=== PATIENT | male | born 1940 | race Caucasian/White ===

== ENCOUNTER 2017-06-30 09:27 | Outpatient (CLI) | payer MEDICARE, OTHER ==
--- NOTE | 2017-07-03 11:41 | CONSULTATION REPORT ---
REFERRING PHYSICIAN: Benitez Godoy DO CONSULTING PHYSICIAN: Ron Buitrago MD HISTORY OF PRESENT ILLNESS: Jeramy Mcdaniel is a 76-year-old white male who was sent to me by Dr. Benitez Godoy for dysphagia. This is a 76-year-old white male who has had difficulty swallowing for the past year. He had a barium swallow which showed a nonfunctioning esophagus. He had an upper endoscopy which showed a stricture. This was dilated with no improvement. The symptoms occur with liquids and solids. There is a concern for possible underlying autoimmune disease, otherwise, he thinks his health is pretty good. He has had chronic shoulder pain for years. He has some pain in his fingers mainly right and left 4th digits. Color change in the hands and feet in the cold with slight blanching. There is no cyanosis and there is no redness. He has had no digital ulcers. He has some fatigue but no weakness or fevers. Some dry eyes. No loss of vision. No itchy eyes. No dry mouth. No hoarseness. No frequent sore throats. He has had no chest pain, shortness of breath, cough or wheezing, nausea, vomiting, or diarrhea. No dark stools or bloody stools. No skin rashes or photosensitivity. PAST MEDICAL HISTORY: 1. Cataracts. 2. Chronic headaches. 3. Rheumatic fever. 4. Cholecystectomy. 5. Alesha fundoplication. 6. Inguinal hernia. 7. New diagnosis of celiac disease. PRESENT MEDICATIONS: 1. Prevacid 15 mg daily. 2. Uroxatral 10 mg daily. 3. Lisinopril 2.5 mg daily. 4. Aspirin. 5. Mucinex. 6. Singulair 10 mg daily. ALLERGIES: He reports allergies to: 1. Penicillin. 2. Sulfa drugs. 3. Gluten. SOCIAL HISTORY: No smoking. No drinking. He is . He is retired. PHYSICAL EXAMINATION: GENERAL: He looks well. VITAL SIGNS: T: 96.1, R: 12, P: 60, BP: 138/77. HEENT: Sclerae are anicteric. Conjunctivae are pink. No stomatitis or glossitis. LUNGS: Clear bilaterally with no crackles or wheezing. HEART: Regular rhythm. ABDOMEN: Soft and nontender. VASCULAR: No edema or cyanosis. SKIN: Shows no facial telangiectasias. No sclerodactyly. No digital pulp infarcts. No periungual lesions. ORAL EXAM: No oral telangiectasias. 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 Right shoulder has limited abduction with hard bony swelling and acromioclavicular hypertrophy. Hips, knees, ankles, and feet are grossly unremarkable. IMPRESSION AND PLAN: 1. Concern for possible scleroderma. I am sending his labs off for [facility] testing. I will call him when I get the results; otherwise, he has no other findings or stigmata of CREST or systemic sclerosis at this time. 2. He does have Dupuytren's findings in both hands which are pauci- symptomatic. cc: Dr. Benitez COTO
== END 2017-06-30 09:30 ==
LOC: RHEU 09:27
PROVIDERS: ATTEND Internal Medicine
DX: M72.0 Palmar fascial fibromatosis [Dupuytren] (principal); R13.19 Other dysphagia
CPT/HCPCS: 99214; G0463

== ENCOUNTER 2017-07-20 14:54 | Outpatient (CLI) | payer MEDICARE, OTHER | END 2017-07-20 14:55 | LOC: LAB 14:54 | PROVIDERS: ATTEND Internal Medicine | DX: Z53.9 Procedure and treatment not carried out, unspecified reason (principal) | CPT/HCPCS: 36415 ==

== ENCOUNTER 2017-08-04 11:24 | Outpatient (CLI) | payer MEDICARE, OTHER ==
--- NOTE | 2017-08-07 07:43 | OP Clinic Progress Note ---
Dear Dr. Godoy: REASON FOR VISIT: I had the pleasure of seeing Jeramy Mcdaniel in follow up. He is doing well. He is eating small meals and tolerating his esophageal dysfunction. Otherwise, no new medical problems and specifically no color change in his hands and feet in the cold. No joint pain or stiffness. No chest pain, shortness of breath, cough or wheezing. No change in past medical history, medications, allergies, or social history. PHYSICAL EXAMINATION: GENERAL: He looks well. VITAL SIGNS: Height: 6 feet 1 inch. Weight: 173. T: 97.5, R: 20, heart rate 60, BP: 120/60. HEENT: Grossly unremarkable. LUNGS: Clear with no crackles or wheezing. HEART: Regular rhythm. ABDOMEN: Soft. SKIN: No telangiectasias. No sclerodactyly. LABORATORY: His [facility] testing returned. Testing for anti-Scl-70 antibodies was negative. Testing for anti-CENP was negative. He had a low- positive rheumatoid factor of 5.1. IMPRESSION: 1. No evidence of systemic sclerosis. 2. His elevated rheumatoid factor is of unknown significance. 3. The patient does have some difficulty with Dupuytren's contractures and tells he has Peyronie's disease and may need a referral to a hand surgeon in the future. Thank you very much for the opportunity to care for your patient. Best regards, cc: Dr. Benitez Godoy Enclosure: [facility]
== END 2017-08-04 11:25 ==
LOC: RHEU 11:24
PROVIDERS: ATTEND Internal Medicine
DX: M72.0 Palmar fascial fibromatosis [Dupuytren] (principal)
CPT/HCPCS: 99213; G0463